=== PATIENT | male | born 1980 | race African-American/Black ===

== ENCOUNTER 2017-01-31 06:57 | Emergency (ER) | payer SELFPAY ==
[~2017-01-31] VITALS: Ht 175.3 cm; Wt 77.1 kg
[~2017-01-31 06:57] MED LIST: CYCLOBENZAPRINE10 MG ORAL; FLAGYL500 MG PO; IBUPROFEN600 MG ORAL; IBUPROFEN800 MG ORAL; NKM
[2017-01-31 07:10] VITALS: BP 140/91
--- NOTE | 2017-01-31 07:16 | Emergency Room Report ---
History of Present Illness General Chief Complaint: Chest Pain Source: Patient Present Illness HPI 36-year-old male with no sig pmhx, p/w chest pain for 3 hours. Chest pain started while he was sleeping, woke him up from sleep. Localized to substernal area, no radiation to back or other areas, sharp in nature, intermittent, current severity is 5/10 because he states that the pain is going down. The pain does not worsen with walking or exertion. Denies palpitations or SOB. Denies diaphoresis, n/v. This is the first occurrence of chest pain. Denies fever, chills, cough, abd pain, recent viral illness. Denies trauma. Denies cardiac history, smoking, or family history of cardiac disease at a young age. Denies history of PE/DVT, prolonged immobilzation, malignancy Patient states that he had knee surgery on his right knee 2 weeks ago, however states that he was ambulatory on crutches since the surgery. Denies any calf pain bilaterally. Allergies: Coded Allergies: No Known Allergies (Unverified , 03/04/12) Patient History Past Medical History: see triage record Past Surgical History: none Pertinent Family History: none Reviewed Nursing Documentation: PMH: Agreed, PSxH: Agreed Nursing Documentation-PMH Past Medical History: No Stated History Review of Systems All Other Systems: negative except mentioned in HPI Physical Exam Vital Signs Date Time Temp Pulse Resp B/P (MAP) Pulse Ox O2 Delivery O2 Flow Rate FiO2 01/31/17 07:00 99.1 92 18 140/91 98 Sp02 EP Interpretation: reviewed, normal General Appearance: alert, GCS 15, non-toxic, mild distress Head: normocephalic, atraumatic Eyes: bilateral eye normal inspection, bilateral eye PERRL, bilateral eye EOMI ENT: normal ENT inspection, normal pharynx, normal voice, moist mucus membranes Neck: normal inspection, full range of motion, supple Respiratory: normal inspection, lungs clear, normal breath sounds, no respiratory distress, no retraction, no wheezing, speaking full sentences, chest symmetrical Cardiovascular #1: normal inspection, regular rate, rhythm, no edema, normal capillary refill Cardiovascular #2: 2+ radial (R), 2+ radial (L) Gastrointestinal: normal inspection, non tender, soft, non-distended, no guarding Genitourinary: no CVA tenderness Musculoskeletal: back normal, other - Right knee with postsurgical scars, mild generalized edema, tender palpation, both calves are nontender and not swollen Neurologic: normal inspection, alert, oriented x3, responsive, motor strength/ tone normal, sensory intact, normal gait, speech normal Psychiatric: normal inspection, judgement/insight normal, memory normal Skin: normal inspection, normal color, no rash, warm/dry, well hydrated, normal turgor Medical Decision Making Diagnostic Impression: Primary Impression: Chest pain ER Course 36-year-old male with chest pain DDX: ACS vs. myocarditis versus drug-induced chest pain versus pneumonia vs. gastritis/GERD vs. pneumothorax PE on differential however at this time there are other more likely diagnoses. Patient is PERC negative Plan: IV access, obtain labs including troponin, EKG, CXR ASA ER course: bedside cardiac ultrasound performed by - teressa qiu, NO pericardial effusion Labs: troponin negative +d-dimer: CTA negative Patient remained chest pain free during ED stay. appears nontoxic will dc home Disposition: Patient will be discharged to home. Strict precautions discussed with patient on when to emergently return to the ED : this includes worsening/severe chest pain, palpitations, shortness of breath, syncopal episodes, fever or chills, which may indicate severe illness. Patient verbalized understanding. Patient instructed to follow up with their PMD within the next 2 days. Patient also instructed to follow up with a house superintendent within 2 days for possible outpatient stress test. Patient agrees with plan. Please note that this Emergency Department Report was dictated using Tinyp[employer].[email or web address] molder technology software, occasionally this can lead to erroneous entry secondary to interpretation by the dictation equipment. EKG Diagnostic Results EP Interpretation: Yes Rate: normal Rhythm: NSR ST Segments: T-wave inversions inferior leads and V4 V5 ASA given to patient: Yes Rhythm Strip EP Interpretation: Yes Rate: 90 Rhythm: NSR, no PVCs, no ectopy Chest X-ray CXR: Ordered: Yes 1 view Indication: Chest pain EP interpretation: Yes Interpretation: No consolidation, no effusion, no PTX, no acute cardiopulmonary disease Impression: No acute disease Electronically signed by Gurvinder Aleman MD Laboratory Tests Test 01/31/17 07:10 White Blood Count 6.5 K/UL (4.8-10.8) Red Blood Count 4.66 M/UL (4.70-6.10) L Hemoglobin 13.4 G/DL (14.2-18.0) L Hematocrit 40.9 % (42.0-52.0) L Mean Corpuscular Volume 88 FL (80-99) Mean Corpuscular Hemoglobin 28.8 PG (27.0-31.0) Mean Corpuscular Hemoglobin Concent 32.8 G/DL (32.0-36.0) Red Cell Distribution Width 12.0 % (11.6-14.8) Platelet Count 377 K/UL (150-450) Mean Platelet Volume 6.0 FL (6.5-10.1) L Neutrophils (%) (Auto) % (45.0-75.0) Lymphocytes (%) (Auto) % (20.0-45.0) Monocytes (%) (Auto) % (1.0-10.0) Eosinophils (%) (Auto) % (0.0-3.0) Basophils (%) (Auto) % (0.0-2.0) Differential Total Cells Counted 100 Neutrophils % (Manual) 57 % (45-75) Lymphocytes % (Manual) 14 % (20-45) L Monocytes % (Manual) 26 % (1-10) H Eosinophils % (Manual) 3 % (0-3) Basophils % (Manual) 0 % (0-2) Band Neutrophils 0 % (0-8) Platelet Estimate Adequate Platelet Morphology Normal Red Blood Cell Morphology Normal D-Dimer 8.87 mg/L FEU (0.00-0.49) H Sodium Level 137 MMOL/L (136-145) Potassium Level 3.7 MMOL/L (3.5-5.1) Chloride Level 99 MMOL/L (98-107) Carbon Dioxide Level 28 MMOL/L (21-32) Anion Gap 10 mmol/L (5-15) Blood Urea Nitrogen 9 mg/dL (7-18) Creatinine 1.2 MG/DL (0.55-1.30) Estimate Glomerular Filtration Rate > 60 mL/min (>60) Glucose Level 95 MG/DL (74-106) Calcium Level 8.6 MG/DL (8.5-10.1) Total Bilirubin 0.7 MG/DL (0.2-1.0) Aspartate Amino Transferase (AST) 29 U/L (15-37) Alanine Aminotransferase (ALT) 51 U/L (12-78) Alkaline Phosphatase 84 U/L (46-116) Troponin I 0.000 ng/mL (0.000-0.056) Pro-B-Type Natriuretic Peptide 39 pg/mL (0-125) Total Protein 8.6 G/DL (6.4-8.2) H Albumin 4.0 G/DL (3.4-5.0) Globulin 4.6 g/dL Albumin/Globulin Ratio 0.9 (1.0-2.7) L Urine Opiates Screen Negative (NEGATIVE) Urine Barbiturates Screen Negative (NEGATIVE) Phencyclidine (PCP) Screen Negative (NEGATIVE) Urine Amphetamines Screen Negative (NEGATIVE) Urine Benzodiazepines Screen Negative (NEGATIVE) Urine Cocaine Screen Negative (NEGATIVE) Urine Marijuana (THC) Screen Positive (NEGATIVE) H CT/MRI/US Diagnostic Results CT/MRI/US Diagnostic Results : Imaging Test Ordered: CTA Chest Impression Findings: Adequate opacification of the pulmonary arteries was achieved. There is no pulmonary embolism. Main pulmonary artery is normal in size. Thoracic aorta is normal in caliber. There is no thoracic aortic aneurysm or dissection. Dependent atelectasis noted in the lung bases, left greater than right. There is no focal airspace consolidation, pleural effusion or pneumothorax. Trachea and bronchi are widely patent. No endobronchial lesion is seen. Heart is borderline enlarged. There is trace pericardial effusion versus pericardial thickening. No coronary arterial calcifications seen though images are degraded by cardiac motion. There is no hilar or mediastinal adenopathy. Imaged upper abdomen is grossly unremarkable. No acute osseous abnormality identified. Impression: No pulmonary embolism. No thoracic aortic aneurysm or dissection. Borderline cardiomegaly with trace pericardial effusion/pericardial thickening. Lungs essentially clear. No acute osseous abnormality. Last Vital Signs Date Time Temp Pulse Resp B/P (MAP) Pulse Ox O2 Delivery O2 Flow Rate FiO2 01/31/17 07:00 99.1 92 18 140/91 98 Disposition: HOME, SELF-CARE Condition: Improved Scripts Ibuprofen* (MOTRIN*) 600 Mg Tablet 600 MG ORAL Q8H Y for For Pain, #30 TAB 0 Refills Prov: Gurvinder Aleman M.D. 01/31/17 Patient Instructions: Nonspecific Chest Pain Gurvinder Aleman M.D. Jan 31, 2017 07:16
[2017-01-31 07:47] LABS: MEAN CORPUSCULAR HEMOGLOBIN 28.8 PG (27.0-31.0); MEAN CORPUSCULAR HGB CONC 32.8 G/DL (32.0-36.0); MEAN CORPUSCULAR VOLUME 88 FL (80-99); PLATELET COUNT 377 K/UL (150-450); RED BLOOD COUNT 4.66 M/UL (4.70-6.10); WHITE BLOOD COUNT 6.5 K/UL (4.8-10.8)
[2017-01-31] MEDS ORDERED: Morphine Sulfate 4mg/ml Inj IVP ONE ×2 (08:15→08:30)
[2017-01-31 08:32] LABS: BAND NEUTROPHILS % (MANUAL) 0 % (0-8); BASOPHILS % (MANUAL) 0 % (0-2); EOSINOPHILS % (MANUAL) 3 % (0-3); LYMPHOCYTES % (MANUAL) 14 % (20-45); NEUTROPHILS % (MANUAL) 57 % (45-75); PLATELET ESTIMATE ADEQUATE; PLATELET MORPHOLOGY NORMAL; TOTAL CELLS COUNTED 100
--- NOTE | 2017-01-31 08:39 | Diagnostic Imaging Report ---
Indication: Chest pain Technique: XRAY Chest 1v Comparison: 01/02/2011 Findings: Slightly rotated to the right. Heart within upper limits for normal size. Heart size is stable compared to the prior exam. There is no focal airspace consolidation, pleural effusion or pneumothorax. No acute osseous abnormality is seen. Impression: No radiographic evidence of acute cardiopulmonary disease. No significant interval change in appearance of the heart and lungs compared to the prior exam.
[2017-01-31 08:53] LABS: ANION GAP 10 mmol/L (5-15); CALCIUM 8.6 MG/DL (8.5-10.1); CARBON DIOXIDE 28 MMOL/L (21-32); CHLORIDE 99 MMOL/L (98-107); CREATININE 1.2 MG/DL (0.55-1.30); GLOMERULAR FILTRATION RATE > 60 mL/min (>60); POTASSIUM 3.7 MMOL/L (3.5-5.1); SODIUM 137 MMOL/L (136-145)
[2017-01-31 09:04] LABS: ALANINE AMINOTRANSFERASE 51 U/L (12-78); ALBUMIN/GLOBULIN RATIO 0.9 (1.0-2.7); ASPARTATE AMINO TRANSFERASE 29 U/L (15-37); TOTAL PROTEIN 8.6 G/DL (6.4-8.2)
[2017-01-31 09:20] VITALS: BP 134/80
--- NOTE | 2017-01-31 10:40 | Diagnostic Imaging Report ---
Indication: Chest pain Technique: CT pulmonary angiogram performed utilizing automated exposure control with intravenous contrast. Axial, sagittal and coronal reconstructions were obtained. 3-D volumetric reconstructions were also performed. CT dose: Total DLP 633 mGycm; CTDI vol 0.2, 12.6, 63.1, 18.9 mGy Comparison: Correlation made to concurrent chest radiograph Findings: Adequate opacification of the pulmonary arteries was achieved. There is no pulmonary embolism. Main pulmonary artery is normal in size. Thoracic aorta is normal in caliber. There is no thoracic aortic aneurysm or dissection. Dependent atelectasis noted in the lung bases, left greater than right. There is no focal airspace consolidation, pleural effusion or pneumothorax. Trachea and bronchi are widely patent. No endobronchial lesion is seen. Heart is borderline enlarged. There is trace pericardial effusion versus pericardial thickening. No coronary arterial calcifications seen though images are degraded by cardiac motion. There is no hilar or mediastinal adenopathy. Imaged upper abdomen is grossly unremarkable. No acute osseous abnormality identified. Impression: No pulmonary embolism. No thoracic aortic aneurysm or dissection. Borderline cardiomegaly with trace pericardial effusion/pericardial thickening. Lungs essentially clear. No acute osseous abnormality. The CT scanner at [facility] is accredited by the [employer] [employer] and the scans are performed using protocols designed to limit radiation exposure to as low as reasonably achievable to attain images of sufficient resolution adequate for diagnostic evaluation.
[2017-01-31] MEDS ORDERED: IBUPROFEN600 MG ORAL (10:55)
[2017-01-31 11:03] VITALS: BP 130/68
[2017-01-31 11:16] VITALS: BP 129/74
--- NOTE | 2017-02-01 14:59 | Cardiology Report ---
APPROVED REPORT EKG Measurement Heart [id number] Normal sinus rhythm Possible Left atrial enlargement T wave abnormality, consider inferolateral ischemia Abnormal ECG
== END 2017-01-31 11:16 | disposition home or self-care (01) ==
LOC: EMR 07:20
DX: R07.89 Other chest pain (principal)
CPT/HCPCS: 36415; 71010; 71275; 80053; 80307; 83880; 84484; 85007; 85025; 85379; 93005; 96374; 99284; J2270; Q9967

== ENCOUNTER 2017-11-04 11:43 | Emergency (ER) | payer MEDICAID, OTHER ==
[~2017-11-04] VITALS: Ht 175.3 cm; Wt 72.6 kg
[2017-11-04 12:19] VITALS: BP 132/86
[2017-11-04] MEDS ORDERED: Methocarbamol 750mg tab ORAL ONE (13:15)
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
[2017-11-04] MEDS ORDERED: ROBAXIN500 MG PO (13:24)
[2017-11-04] MEDS ORDERED: IBUPROFEN600 MG ORAL (13:24)
[2017-11-04 13:39] VITALS: BP 124/72
== END 2017-11-04 13:48 | disposition home or self-care (01) ==
LOC: EMR 12:55
DX: S40.012A Contusion of left shoulder, initial encounter (principal); S16.1XXA Strain of muscle, fascia and tendon at neck level, initial encounter; V43.52XA Car driver injured in collision with other type car in traffic accident, initial encounter; Y92.9 Unspecified place or not applicable
CPT/HCPCS: 99282

== ENCOUNTER 2018-03-29 17:59 | Emergency (ER) | payer MEDICAID ==
[~2018-03-29] VITALS: Ht 175.3 cm; Wt 74.8 kg
[~2018-03-29 17:59] MED LIST changes: +ROBAXIN500 MG PO
--- NOTE | 2018-03-29 18:20 | NUR ---
ED Nurse Note: PT WALKED IN TO ER TODAY FROM HOME. AOX4. PT C/O PAINFUL URINATION X 10 DAYS AGO. PT ALSO C/O WHITE DISCHARGE X 1 WEEK AGO. PT DENIES ANY GENITAL SWELLING, ITCHING, OR IRRITATION. PT DENIES HEMATURIA.
[2018-03-29 18:22] VITALS: BP 122/84
--- NOTE | 2018-03-29 18:25 | Emergency Room Report ---
History of Present Illness General Chief Complaint: Male Urogenital Problems Source: Patient Present Illness HPI 37-year-old male patient presents the ER complaining of dysuria for the past 10 days. Reports burning sensation and increased frequency. Reports recent sexual activity with 1 partner, reports sexually monogamous relationship with his . Denies concern for STI. Reports white penile discharge for the past 2 days, states symptoms began after a friend of his gave him a topical cream to put on his penis, states he puts on the tip of his penis, states he does not know the name of the medication.. Denies hematuria. Denies testicular pain or swelling. Denies penile rash or genital lesions. Denies fever, chest pain, shortness of breath, abdominal pain, vomiting. Denies other aggravating or relieving factors. Allergies: Coded Allergies: No Known Allergies (Unverified , 03/04/12) Patient History Past Medical History: see triage record Reviewed Nursing Documentation: PMH: Agreed; PSxH: Agreed Nursing Documentation-PMH Past Medical History: No Stated History Review of Systems All Other Systems: negative except mentioned in HPI Physical Exam Vital Signs Date Time Temp Pulse Resp B/P (MAP) Pulse Ox O2 Delivery O2 Flow Rate FiO2 03/29/18 18:09 98.1 62 20 125/83 98 Room Air Sp02 EP Interpretation: reviewed, normal General Appearance: well appearing, no apparent distress, alert, GCS 15, non- toxic Head: normocephalic, atraumatic Eyes: bilateral eye normal inspection, bilateral eye PERRL ENT: hearing grossly normal, normal pharynx, no angioedema, normal voice, uvula midline, moist mucus membranes Neck: full range of motion Respiratory: lungs clear, normal breath sounds, no rhonchi, no respiratory distress, no accessory muscle use, no wheezing, speaking full sentences Cardiovascular #1: regular rate, rhythm, no edema Gastrointestinal: non tender, soft, no mass, non-distended, no guarding, no rebound Genitourinary: no CVA tenderness, deferred Musculoskeletal: back normal, digits/nails normal, gait/station normal, normal range of motion, non-tender Skin: no rash Medical Decision Making PA Attestation Dr. Hogue is my supervising Physician whom patient management has been discussed with. Diagnostic Impression: Primary Impression: Urinary tract infection ER Course Pt presents to ED c/o burning pain with urination. DDX considered but are not limited to cystitis, pyelonephritis, STI, epididymitis, orchitis. No abdominal TTP, negative obturator, negative Vega, negative Rovsing, low suspicion for cholecystitis or appendicitis, does not require imaging or labs at this time. VITAL SIGNS are WNL, patient is afebrile. Ordered UA. ER COURSE UA results show WBCs and leukocyte esterase, patient symptomatic, indicate UTI, will treat with abx. If concern for STI, followup with STI clinic for testing and treatment. Denies STI concern. Offered to treat patient for STI, patient declined repeatedly. Advised patient follow-up with STI clinic. Provided with contact information for STI clinics. Patient is resting comfortably in chair, nontoxic appearing, in no acute distress. Patient states they feel better and is ready to go home. DISCHARGE Patient is stable for discharge. Patient resting comfortably, in no acute distress, nontoxic appearing, talking without difficulty. Will provide with patient care instructions and any necessary prescriptions. Patient understands and agrees to treatment plan. Patient encouraged to drink plenty of fluids. Patient to take medication as instructed. Care plan and follow-up instructions provided. Patient questions asked and answered. Reports understanding and agreement to treatment plan. Patient instructed to follow-up with primary care provider in 3 - 5 days. ER precautions given. Patient instructed to return to ER immediately for any new or worsening of symptoms. Including but not limited to fever, abdominal pain , intractable vomiting. - Please note that this Emergency Department Report was dictated using SampalRxdisplay department manager technology software, occasionally this can lead to erroneous entry secondary to interpretation by the dictation equipment. Labs Test 03/29/18 18:15 Urine Color Pale yellow Urine Appearance Clear Urine pH 5 (4.5-8.0) Urine Specific [place] 1.015 (1.005-1.035) Urine Protein Negative (NEGATIVE) Urine Glucose (UA) Negative (NEGATIVE) Urine Ketones Negative (NEGATIVE) Urine Blood Negative (NEGATIVE) Urine Nitrite Negative (NEGATIVE) Urine Bilirubin Negative (NEGATIVE) Urine Urobilinogen Normal MG/DL (0.0-1.0) Urine Leukocyte Esterase 2+ (NEGATIVE) Urine RBC 0-2 /HPF (0 - 0) Urine WBC 5-10 /HPF (0 - 0) Urine Squamous Epithelial Cells None /LPF (NONE/OCC) Urine Bacteria Few /HPF (NONE) Last Vital Signs Date Time Temp Pulse Resp B/P (MAP) Pulse Ox O2 Delivery O2 Flow Rate FiO2 03/29/18 18:22 98.3 64 18 122/84 99 Room Air Disposition: HOME, SELF-CARE Condition: Stable Scripts Cephalexin* (KEFLEX*) 500 Mg Capsule 500 MG ORAL EVERY 12 HOURS, #14 CAP 0 Refills Prov: Eliceo Cedeno 03/29/18 Patient Instructions: Urinary Tract Infection Additional Instructions: Followup with primary care provider and followup with STI clinic for further evaluation and treatment. Alert sexual partners for need for evaluation and treatment. Wear condoms during sex. Avoid sexual activity for 2 weeks. Drink plenty of fluids. Patient questions asked and answered. ER precautions given, patient instructed to return to ER immediately for any new or worsening of symptoms. Eliceo Cedeno Mar 29, 2018 18:25
[2018-03-29 18:54] LABS: APPEARANCE,URINE CLEAR; BILIRUBIN, URINE NEGATIVE (NEGATIVE); COLOR,URINE PALE YELLOW; GLUCOSE, URINE (UA) NEGATIVE (NEGATIVE); KETONES,URINE NEGATIVE (NEGATIVE); LEUKOCYTE ESTERASE ,URINE 2+ (NEGATIVE); NITRITE,URINE NEGATIVE (NEGATIVE); PH,URINE 5 (4.5-8.0); PROTEIN,URINE NEGATIVE (NEGATIVE); UROBILINOGEN,URINE NORMAL MG/DL (0.0-1.0)
--- NOTE | 2018-03-29 19:01 | NUR ---
ED Nurse Note: REPORT GIVEN TO YANELI MORELAND.
[2018-03-29] MEDS ORDERED: CEPHALEXIN500 MG ORAL (19:33)
--- NOTE | 2018-03-29 19:36 | NUR ---
ER DISCHARGE NOTE: Patient is cleared to be discharged per ERMD, pt is aox4, on room air, with stable vital signs. pt was given dc and prescription instructions, pt was able to verbalize understanding, pt id band and iv site removed without complications. pt is able to ambulate with steady gait. pt took all belongings.
[2018-03-29 19:38] VITALS: BP 119/83
== END 2018-03-29 19:36 | disposition home or self-care (01) ==
LOC: EMR 18:42
DX: N39.0 Urinary tract infection, site not specified (principal)
CPT/HCPCS: 81003; 99283

== ENCOUNTER 2018-05-14 18:40 | Emergency (ER) | payer MEDICAID ==
[~2018-05-14] VITALS: Ht 175.3 cm; Wt 72.6 kg
[~2018-05-14 18:40] MED LIST changes: +CEPHALEXIN500 MG ORAL
[2018-05-14] MEDS ORDERED: NKM (18:47)
--- NOTE | 2018-05-14 18:53 | NUR ---
ED Nurse Note: PT WALKED IN TO ER TODAY FROM HOME. AOX4. PT C/O CHEST PAIN, 10 X 2 MONTHS AGO ACCOMPANIED BY HEADACHE THAT STARTED THIS AM. PT DENIES DIZZINESS, NAUSEA OR VOMITING. GAIT STEADY. NORMAL SINUS RHYTHM ON MONITOR WITH BP 137/80.
[2018-05-14 18:54] VITALS: BP 137/80
--- NOTE | 2018-05-14 19:16 | Emergency Room Report ---
History of Present Illness General Chief Complaint: Chest Pain Source: Patient Present Illness HPI 38-year-old male who is otherwise healthy, complains of chest pain is left- sided. Started several weeks ago. No exacerbating or relieving factor. Denies any shortness of breath or diaphoresis. No radiation. Describes it as dull pain. Allergies: Coded Allergies: No Known Allergies (Unverified , 03/04/12) Patient History Past Surgical History: none Pertinent Family History: none Nursing Documentation-H Past Medical History: No Stated History Review of Systems All Other Systems: negative except mentioned in HPI Physical Exam Vital Signs Date Time Temp Pulse Resp B/P (MAP) Pulse Ox O2 Delivery O2 Flow Rate FiO2 05/14/18 18:44 98.2 65 14 130/86 99 Room Air General Appearance: well appearing, no apparent distress Head: normocephalic, atraumatic ENT: hearing grossly normal, normal voice Neck: full range of motion, supple Respiratory: no respiratory distress, speaking full sentences Cardiovascular #1: normal inspection, normal peripheral pulses, regular rate, rhythm Musculoskeletal: normal inspection, no calf tenderness Neurologic: alert, normal gait Psychiatric: mood/affect normal Skin: no rash Medical Decision Making Diagnostic Impression: Primary Impression: Chest pain ER Course Patient was seen and examined. His pain is very reproducible. The patient is nontoxic-appearing. Chest x-ray was reviewed. I see no evidence for pneumothorax. He is not tachypnea, tachycardic, hypoxic. Chest x-ray showed no acute disease process. EKG is unremarkable except for T-wave inversions which are symmetric. See no evidence of acute ischemia. Despite having this chest pain for several weeks, he has a negative troponin. The patient will be started on pain medication. I do return is any change in symptoms or worsening symptoms. Laboratory Tests Test 05/14/18 19:07 White Blood Count 4.8 K/UL (4.8-10.8) Red Blood Count 5.27 M/UL (4.70-6.10) Hemoglobin 14.9 G/DL (14.2-18.0) Hematocrit 44.9 % (42.0-52.0) Mean Corpuscular Volume 85 FL (80-99) Mean Corpuscular Hemoglobin 28.3 PG (27.0-31.0) Mean Corpuscular Hemoglobin Concent 33.2 G/DL (32.0-36.0) Red Cell Distribution Width 12.0 % (11.6-14.8) Platelet Count 251 K/UL (150-450) Mean Platelet Volume 5.8 FL (6.5-10.1) L Neutrophils (%) (Auto) 35.1 % (45.0-75.0) L Lymphocytes (%) (Auto) 48.9 % (20.0-45.0) H Monocytes (%) (Auto) 7.8 % (1.0-10.0) Eosinophils (%) (Auto) 6.2 % (0.0-3.0) H Basophils (%) (Auto) 1.9 % (0.0-2.0) Sodium Level 140 MMOL/L (136-145) Potassium Level 3.9 MMOL/L (3.5-5.1) Chloride Level 101 MMOL/L (98-107) Carbon Dioxide Level 31 MMOL/L (21-32) Anion Gap 8 mmol/L (5-15) Blood Urea Nitrogen 12 mg/dL (7-18) Creatinine 1.2 MG/DL (0.55-1.30) Estimate Glomerular Filtration Rate > 60 mL/min (>60) Glucose Level 95 MG/DL (74-106) Calcium Level 9.5 MG/DL (8.5-10.1) Troponin I 0.000 ng/mL (0.000-0.056) EKG Diagnostic Results Rate: normal Rhythm: NSR ST Segments: other - difuse t wave inversions. no ST changes Chest X-Ray Diagnostic Results Chest X-Ray Diagnostic Results : Chest X-Ray Ordered: Yes # of Views/Limited/Complete: 2 View PA Xray: Interpretation reviewed Interpretation: no acute cardiopulmonary disease Last Vital Signs Date Time Temp Pulse Resp B/P (MAP) Pulse Ox O2 Delivery O2 Flow Rate FiO2 05/14/18 18:54 98.4 67 13 137/80 100 Room Air Disposition: HOME, SELF-CARE Scripts Ibuprofen* (MOTRIN*) 600 Mg Tablet 600 MG ORAL Q8H PRN for For Pain, #30 TAB 0 Refills Prov: SHEREE SEAMAN 05/14/18 Patient Instructions: Nonspecific Chest Pain SHEREE SEAMAN May 14, 2018 19:15
--- NOTE | 2018-05-14 19:21 | NUR ---
ED Nurse Note: REPORT GIVEN TO YANELI STEWART.
[2018-05-14 19:38] LABS: BASOPHILS % (AUTO) 1.9 % (0.0-2.0); EOSINOPHILS % (AUTO) 6.2 % (0.0-3.0); HEMATOCRIT 44.9 % (42.0-52.0); HEMOGLOBIN 14.9 G/DL (14.2-18.0); LYMPHOCYTES % (AUTO) 48.9 % (20.0-45.0); MEAN CORPUSCULAR VOLUME 85 FL (80-99); MONOCYTES % (AUTO) 7.8 % (1.0-10.0); NEUTROPHILS % (AUTO) 35.1 % (45.0-75.0); PLATELET COUNT 251 K/UL (150-450); RED BLOOD COUNT 5.27 M/UL (4.70-6.10); WHITE BLOOD COUNT 4.8 K/UL (4.8-10.8)
[2018-05-14 19:39] LABS: ANION GAP 8 mmol/L (5-15); BLOOD UREA NITROGEN 12 mg/dL (7-18); CALCIUM 9.5 MG/DL (8.5-10.1); CARBON DIOXIDE 31 MMOL/L (21-32); CHLORIDE 101 MMOL/L (98-107); CREATININE 1.2 MG/DL (0.55-1.30); POTASSIUM 3.9 MMOL/L (3.5-5.1); SODIUM 140 MMOL/L (136-145)
[2018-05-14] MEDS ORDERED: IBUPROFEN600 MG ORAL (19:56)
[2018-05-14 20:51] VITALS: BP 121/82
[2018-05-14 20:52] VITALS: BP 137/80
--- NOTE | 2018-05-14 20:53 | NUR ---
ED Nurse Note: Patient cleared for discharge by [place]. Patient AOx4, VSS, ambulatory with steady gait, no s/s of acute distress noted at this time. patient provided with discharge instructions and medication prescriptions. Patient verbalized understanding. Patient took all personal belongings with him. Patient has at bedside to take him home. Patient ID band and IV access removed. Patient instructed to follow up with PCP in 1 week.
== END 2018-05-14 20:50 | disposition home or self-care (01) ==
LOC: EMR 20:50
DX: R07.9 Chest pain, unspecified (principal)
CPT/HCPCS: 36415; 71046; 80048; 84484; 85025; 93005; 99284

== ENCOUNTER → 2019-04-19 | Emergency (ER) | payer MEDICAID ==
[~2019-04-19] VITALS: Ht 175.3 cm; Wt 74.8 kg
[~2019-04-19] MED LIST changes: +Ketorolac 30mg Inj IM ONE; +LIDODERM700 M1 TOPIC; +Methocarbamol 500mg tab ORAL ONE; +ROBAXIN-750750 MG PO
[2019-04-19 12:30] VITALS: BP 127/74
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
[2019-04-19 13:43] VITALS: BP 127/74
--- NOTE | 2019-04-19 13:43 | NUR ---
ER DISCHARGE NOTE: Patient is cleared to be discharged per ERMD, pt is aox4, on room air, with stable vital signs. pt was given dc and prescription instructions, pt was able to verbalize understanding, pt id band removed. pt is able to ambulate with steady gait. pt took all belongings.
== END | disposition home or self-care (01) ==
LOC: EMR 13:23
DX: S39.012A Strain of muscle, fascia and tendon of lower back, initial encounter (principal); M54.42 Lumbago with sciatica, left side; X58.XXXA Exposure to other specified factors, initial encounter; Y92.9 Unspecified place or not applicable
CPT/HCPCS: 96372; J1885; Z7502; 99283